=== PATIENT | female | born 1985 | race Caucasian/White ===

== ENCOUNTER 2017-12-05 09:32 | Emergency (ER) | payer SELFPAY ==
[~2017-12-05] VITALS: Ht 165.1 cm; Wt 63.5 kg
[~2017-12-05 09:32] MED LIST: IBUP800 PO; PREN0.01 PO
[2017-12-05 09:34] VITALS: BP 188/92; PULSE 99; RESP 16; TEMP 98; O2SAT 98
--- NOTE | 2017-12-05 10:00 | PD ---
HPI Chief Complaint: Complaint Time Seen by Provider: 09:49 Travel History International Travel<30 days: No Contact w/Intl Traveler<30days: No Traveled to known affect area: No History of Present Illness HPI Patient states that she self diagnosed herself with a UTI on Wednesday and took Azo [id number]. Yesterday the pain went away but this morning she is complaining of dysuria, urinary frequency, bilateral flank pain. She denies fever or chills or vomiting but reports nausea. No vaginal discharge but reports diffuse lower abdominal pain. Last menstrual periods one half weeks ago. Denies any trauma, states the back pain made it difficult to walk/move. PFSH Past Medical History Depression: Yes Integumentary: Yes (acme) Immunizations Current: Yes Tetanus Vaccination: > 5 Years Influenza Vaccination: No ?: Not LMP: 2 WEEKS AGO : 1 Para: 0 Past Surgical History Oral Surgery: Yes (wisdom teeth extraction) Other Surgery: Yes (breast augmentation) Social History Alcohol Use: No Tobacco Use: Yes (1ppd) Substance Use: No Allergies-Medications (Allergen,Severity, Reaction): Coded Allergies: No Known Allergies (Verified Adverse Reaction, Unknown, 12/05/17) Reported Meds & Prescriptions Reported Meds & Active Scripts Active Cipro (Ciprofloxacin HCl) 500 Mg Tab 500 Mg PO BID 5 Days Pyridium (Phenazopyridine HCl) 100 Mg Tab 200 Mg PO Q8H PRN 2 Days Review of Systems Except as stated in HPI: all other systems reviewed are Neg Physical Exam Narrative GENERAL: Positive discomfort, crying on exam. SKIN: Focused skin assessment warm/dry. HEAD: Atraumatic. Normocephalic. EYES: Extraocular muscles intact bilaterally. No scleral icterus. No injection or drainage. ENT: No nasal bleeding or discharge. Mucous membranes pink and moist. NECK: Trachea midline. No JVD. CARDIOVASCULAR: Regular rate and rhythm. No murmur appreciated. RESPIRATORY: No accessory muscle use. Clear to auscultation. Breath sounds equal bilaterally. GASTROINTESTINAL: Abdomen soft, diffuse lower and suprapubic tenderness, nondistended. Bilateral CVA tenderness. MUSCULOSKELETAL: No obvious deformities. No clubbing. No cyanosis. No edema. No focal C/T/L-spine tenderness to palpation. NEUROLOGICAL: Awake and alert. No obvious cranial nerve deficits. Motor grossly within normal limits. Normal speech. PSYCHIATRIC: Appropriate mood and affect; insight and judgment normal. Data Data Last Documented VS Vital Signs Date Time Temp Pulse Resp B/P (MAP) Pulse Ox O2 Delivery O2 Flow Rate FiO2 12/05/17 11:23 18 12/05/17 10:30 86 131/91 (104) 98 Room Air 12/05/17 09:34 98.0 Orders Orders Complete Blood Count With Diff (12/05/17 09:54) Comprehensive Metabolic Panel (12/05/17 09:54) Urinalysis - C+S If Indicated (12/05/17 09:54) Ed Urine Pregnancytest Poc (12/05/17 09:54) Ketorolac Inj (Toradol Inj) (12/05/17 10:30) Urine Culture (12/05/17 10:00) Ceftriaxone Inj (Rocephin Inj) (12/05/17 10:45) Labs Laboratory Tests Test 12/05/17 10:00 12/05/17 10:06 Urine Collection Type CLEAN CATCH Urine Color YELLOW Urine Turbidity CLEAR Urine pH 8.5 Urine Specific [place] 1.015 Urine Protein 100 mg/dL Urine Glucose (UA) NEG mg/dL Urine Ketones NEG mg/dL Urine Occult Blood LARGE Urine Nitrite POS Urine Bilirubin NEG Urine Urobilinogen 0.2 MG/DL Urine Leukocyte Esterase LARGE Urine RBC 20-24 /hpf Urine WBC 100-200 /hpf Urine Squamous Epithelial Cells > 8 /hpf Urine Bacteria FEW /hpf Microscopic Urinalysis Comment CULTURE INDICATED White Blood Count 11.6 TH/MM3 Red Blood Count 5.40 MIL/MM3 Hemoglobin 16.0 GM/DL Hematocrit 49.3 % Mean Corpuscular Volume 91.3 FL Mean Corpuscular Hemoglobin 29.7 PG Mean Corpuscular Hemoglobin Concent 32.5 % Red Cell Distribution Width 13.1 % Platelet Count 347 TH/MM3 Mean Platelet Volume 7.8 FL Neutrophils (%) (Auto) 77.6 % Lymphocytes (%) (Auto) 15.3 % Monocytes (%) (Auto) 5.8 % Eosinophils (%) (Auto) 1.0 % Basophils (%) (Auto) 0.3 % Neutrophils # (Auto) 9.0 TH/MM3 Lymphocytes # (Auto) 1.8 TH/MM3 Monocytes # (Auto) 0.7 TH/MM3 Eosinophils # (Auto) 0.1 TH/MM3 Basophils # (Auto) 0.0 TH/MM3 CBC Comment DIFF FINAL Differential Comment Blood Urea Nitrogen 6 MG/DL Random Glucose 89 MG/DL Total Protein 8.4 GM/DL Calcium Level 9.0 MG/DL Alkaline Phosphatase 110 U/L Total Bilirubin 0.5 MG/DL Sodium Level 139 MEQ/L Potassium Level 3.9 MEQ/L Chloride Level 105 MEQ/L Carbon Dioxide Level 26.4 MEQ/L Anion Gap 8 MEQ/L Estimat Glomerular Filtration Rate 84 ML/MIN [facility] Medical Decision Making Medical Screen Exam Complete: Yes Emergency Medical Condition: Yes Interpretation(s) Labs: Leukocytosis, elevated hemoglobin and hematocrit; Positive UTI; AST is slightly increased at 40 Differential Diagnosis , sexually transmitted infection, pyelonephritis, cystitis, pancreatitis Narrative Course Patient presents to the emergency department complaining of bilateral flank pain and dysuria. She is afebrile, hypertensive at 188/92, remaining vital signs stable. Patient placed on a ekg monitor, IV access obtained, and labs sent. Patient given 15 mg IV Toradol for pain. 1041: Rocephin 1 g IV ordered. 1056: Patient receiving antibiotics and states that she feels better. Diagnosis Primary Impression: Urinary tract infection Qualified Codes: N10 - Acute pyelonephritis Additional Impression: Pyelonephritis Referrals: [facility] Patient Instructions: General Instructions, Kidney Infection (ED) Additional Instructions: 1. Meds as directed. 2. Return to ER for fever, vomiting, abdominal pain, inability to urinate, or for any new/worrisome/worsening symptoms. Med/Other Pt SpecificInfo: Prescription(s) given Scripts Ciprofloxacin (Cipro) 500 Mg Tab 500 MG PO BID for Infection for 5 Days, #10 TAB 0 Refills Prov: Christine Gramajo MD 12/05/17 Phenazopyridine (Pyridium) 100 Mg Tab 200 MG PO Q8H Y for DYSURIA for 2 Days, #12 TAB 0 Refills Prov: Christine Gramajo MD 12/05/17 Disposition: 01 DISCHARGE HOME Condition: Stable Christine Gramajo MD Dec 05, 2017 10:00
[2017-12-05 10:14] LABS: BASOPHIL % 0.3 % (0.0-2.0); EOSINOPHIL # 0.1 TH/MM3 (0-0.4); HEMATOCRIT 49.3 % (35.0-46.0); LYMPH % 15.3 % (9.0-44.0); LYMPHOCYTE # 1.8 TH/MM3 (1.0-4.8); MEAN CELL VOLUME 91.3 FL (80.0-100.0); MEAN CORPUSCULAR HEMOGLOBIN 29.7 PG (27.0-34.0); MEAN CORPUSCULAR HGB CONC 32.5 % (32.0-36.0); MEAN PLATELET VOLUME 7.8 FL (7.0-11.0); MONO % 5.8 % (0.0-8.0); MONOCYTE # 0.7 TH/MM3 (0-0.9); NEUT % 77.6 % (16.0-70.0); PLATELET COUNT 347 TH/MM3 (150-450); RED CELL DISTRIBUTION WIDTH 13.1 % (11.6-17.2); WHITE BLOOD COUNT 11.6 TH/MM3 (4.0-11.0)
[2017-12-05 10:26] LABS: BILIRUBIN, URINE NEG (NEG); BLOOD, URINE LARGE (NEG); GLUCOSE,URINE NEG (NEG); KETONE, URINE NEG (NEG); NITRITE,URINE POS (NEG); PH, URINE 8.5 (5.0-8.5); URINE COLOR YELLOW (YELLW/STRAW); URINE LEUKOCYTE ESTERASE LARGE (NEG)
[2017-12-05 10:30] VITALS: BP 131/91; PULSE 86; RESP 18; O2SAT 98
[2017-12-05] MEDS ORDERED: KETOROLAC TROMETHAMINE 30 MG/ML (IVP) VIAL IV PUSH ONE (10:30)
[2017-12-05 10:31] LABS: CHLORIDE 105 MEQ/L (98-107); SODIUM (NA) 139 MEQ/L (136-145)
[2017-12-05 10:34] LABS: BICARBONATE 26.4 MEQ/L (21.0-32.0); BLOOD UREA NITROGEN 6 MG/DL (7-18)
[2017-12-05 10:35] LABS: GLUCOSE,RANDOM 89 MG/DL (74-106)
[2017-12-05 10:37] LABS: BACTERIA, URINE FEW /hpf; SQUAMOUS EPITHELIAL CELL URINE > 8 /hpf (0-5); WBC, URINE 100-200 /hpf (0-5)
[2017-12-05 10:39] LABS: TOTAL PROTEIN 8.4 GM/DL (6.4-8.2)
[2017-12-05 10:41] LABS: ALKALINE PHOSPHATASE 110 U/L (45-117)
[2017-12-05] MEDS ORDERED: PHEN0.4T PO (10:43)
[2017-12-05] MEDS ORDERED: cefTRIAXone INJ 1,000 MG in SODIUM CHLORIDE 0.9% INJ 100 ML IV ONE (10:45)
[2017-12-05 10:50] LABS: ALBUMIN 3.8 GM/DL (3.4-5.0); ALT (GPT) 38 U/L (10-53); AST (GOT) 40 U/L (15-37); CREATININE 0.79 MG/DL (0.50-1.00); GLOMERULAR FILTRATION RATE 84 ML/MIN (>89)
[2017-12-05] MEDS ORDERED: CIPR-9 PO (10:51)
[2017-12-05 10:54] LABS: TOTAL BILIRUBIN ADULT 0.5 MG/DL (0.2-1.0)
[2017-12-05 11:23] VITALS: RESP 18
[2017-12-05 11:54] VITALS: BP 139/82
== END 2017-12-05 11:55 | disposition home or self-care (01) ==
LOC: PHED 09:32
DX: N39.0 Urinary tract infection, site not specified (principal); B96.20 Unspecified Escherichia coli [E. coli] as the cause of diseases classified elsewhere; N12 Tubulo-interstitial nephritis, not specified as acute or chronic; F32.9 Major depressive disorder, single episode, unspecified; F17.200 Nicotine dependence, unspecified, uncomplicated
CPT/HCPCS: 80053; 81001; 84703; 85025; 87077; 87086; 87186; 96365; 96375; 99284; J0696; J1885